=== PATIENT | male | born 1990 | race Two or more races ===

== ENCOUNTER 2020-03-22 20:24 | Inpatient (IN) | payer BC, OTHER ==
[~2020-03-22] VITALS: Ht 170.2 cm; Wt 114.0 kg
[2020-03-22] MEDS ORDERED: ONDANSETRON HCL 4 MG/2 ML VIAL IV ONE (20:45)
[2020-03-22] MEDS ORDERED: SODIUM CHLORIDE 0.9% 1,000 ML IVB ONE (20:45)
[2020-03-22] MEDS ORDERED: MORPHINE SULFATE 4 MG/ML SYR/VIAL IV ONE (20:45)
[2020-03-22 21:13] LABS: Basophils # (auto) 0 10 ^3/uL (0-0.2); Basophils % (auto) 0.1 % (0.0-2.0); Eosinophils # (auto) 0 10 ^3/uL (0-0.8); Eosinophils % (auto) 0.1 % (0.0-7.0); Hematocrit 42.8 % (41.0-53.0); Hemoglobin 14.7 g/dL (13.5-17.5); Lymphocytes # (auto) 1.6 10 ^3/uL (0.4-5.4); Lymphocytes % (auto) 9.3 % (10.0-50.0); Mean Corpuscular Hemoglobin 29.5 pg (28.0-32.0); Mean Corpuscular Hgb Conc. 34.2 g/dL (32.0-36.0); Mean Corpuscular Volume 86.1 fL (80.0-100.0); Monocytes # (auto) 1.3 10 ^3/uL (0-1.3); Monocytes % (auto) 7.6 % (0.0-12.0); Neutrophils % (auto) 82.9 % (37.0-80.0); Platelet Count (auto) 369 10^3/uL (140-450); Red Blood Cells 4.97 10^6/uL (4.5-5.90); Red Cell Distribution Width 13.3 % (11.8-14.3); White Blood Cell 16.9 10^3/uL (4.4-10.8)
[2020-03-22] MEDS ORDERED: IOHEXOL 300 MG/ML 100ML BOTTLE IJ ONE (21:21)
[2020-03-22 21:34] LABS: Alanine Aminotransferase 19 U/L (16-61); Albumin 2.9 g/dL (3.4-5.0); Anion Gap 6 (5-15); Aspartate Aminotransferase 9 U/L (15-37); Blood Urea Nitrogen 13 mg/dL (7-18); Carbon Dioxide 23 mmol/L (21-32); Chloride 106 mmol/L (98-107); GFR African American 123 mL/min; GFR Non-African American 101 mL/min; Glucose 115 mg/dL (74-106); Lipase 76 U/L (73-393); Potassium 4.3 mmol/L (3.5-5.1); Sodium 135 mmol/L (136-145)
[2020-03-22 21:37] LABS: Alkaline Phosphatase 79 U/L (45-117); Bilirubin, Total 0.6 mg/dL (0.2-1.0); Total Protein 7.2 g/dL (6.4-8.2)
[2020-03-22 21:40] LABS: Urine Bacteria NONE SEEN /hpf (None Seen); Urine Blood 1+ /uL (Negative); Urine Mucus FEW (None Seen); Urine Specific Gravity 1.028 (1.001-1.035); Urine WBC 1 /hpf (0 - 3)
[2020-03-22] MEDS ORDERED: MORPHINE SULFATE 10 MG/ML INJ 1ML SDV IV ONE (22:00)
[2020-03-22] MEDS ORDERED: PIPERACILLIN-TAZOB 3.375GM 100 ML IV ONE (22:00)
[2020-03-22 22:29] LABS: INR 1.18 (0.9-1.15); Partial Thromboplastin Time 26.7 sec (23.0-31.2)
[2020-03-22] MEDS ORDERED: metroNIDAZOLE 500MG/100ML 100 ML IV ONE (22:45)
[2020-03-22] MEDS ORDERED: NITROGLYCERIN 0.4 MG SL TAB SL PRN (22:45)
[2020-03-22] MEDS ORDERED: MORPHINE SULF INJ 2 MG/ML SYRINGE 1ML IV PRN (22:45)
[2020-03-22] MEDS ORDERED: FAMOTIDINE (10MG/ML) 2ML VL IV ONE (22:45)
[2020-03-22] MEDS ORDERED: SODIUM CHLORIDE 0.9% 500 ML IV ONE (22:45)
[2020-03-23] MEDS: SODIUM CHLORIDE 0.9% 1,000 ML IV SCH ×3 (00:32→18:34)
[2020-03-23] MEDS ORDERED: BENZOCAINE (DENTAL) 20 % SPRAY 60ML MT ONE (00:45)
[2020-03-23] MEDS: MORPHINE SULFATE 4 MG/ML SYR/VIAL IV PRN ×2 (01:20→08:32)
[2020-03-23] MEDS ORDERED: VANCOMYCIN PER PHARMACY 0 MG IV SCH (03:00)
[2020-03-23] MEDS ORDERED: VANCOMYCIN 1GM/250ML 250 ML IV ONE (03:15)
[2020-03-23] MEDS: metroNIDAZOLE 500MG/100ML 100 ML IV SCH ×3 (06:33→22:07)
[2020-03-23] MEDS: PIPERACILLIN-TAZOB 3.375GM 100 ML IV SCH ×2 (06:34→18:00)
[2020-03-23 06:35] LABS: Basophils # (auto) 0 10 ^3/uL (0-0.2); Basophils % (auto) 0.1 % (0.0-2.0); Eosinophils # (auto) 0.1 10 ^3/uL (0-0.8); Eosinophils % (auto) 0.8 % (0.0-7.0); Hematocrit 36.5 % (41.0-53.0); Hemoglobin 12.2 g/dL (13.5-17.5); Lymphocytes # (auto) 1.9 10 ^3/uL (0.4-5.4); Lymphocytes % (auto) 15.1 % (10.0-50.0); Mean Corpuscular Hgb Conc. 33.4 g/dL (32.0-36.0); Mean Corpuscular Volume 86.8 fL (80.0-100.0); Monocytes # (auto) 1.3 10 ^3/uL (0-1.3); Monocytes % (auto) 10.3 % (0.0-12.0); Neutrophils # (auto) 9.3 10 ^3/uL (1.6-8.6); Neutrophils % (auto) 73.7 % (37.0-80.0); Platelet Count (auto) 327 10^3/uL (140-450); Red Cell Distribution Width 13.2 % (11.8-14.3); White Blood Cell 12.6 10^3/uL (4.4-10.8)
[2020-03-23 06:53] LABS: Potassium 4.2 mmol/L (3.5-5.1)
[2020-03-23 07:00] LABS: Albumin 2.4 g/dL (3.4-5.0); BUN/Creatinine Ratio 11.5; Bilirubin, Total 0.6 mg/dL (0.2-1.0); Calcium 9.1 mg/dL (8.5-10.1); Total Protein 6.2 g/dL (6.4-8.2)
[2020-03-23] MEDS: ONDANSETRON HCL 4 MG/2 ML VIAL IV PRN ×2 (08:33→15:05)
[2020-03-23] MEDS ORDERED: FAMOTIDINE (10MG/ML) 2ML VL IV SCH (10:00)
[2020-03-23] MEDS: HYDROmorphone HCL 2 MG/ML VL IV PRN ×7 (10:37→23:20)
[2020-03-23] MEDS: VANCOMYCIN 1GM/250ML 250 ML IV SCH ×3 (12:00→20:29)
[2020-03-23] MEDS ORDERED: POVIDONE IODINE 10 % TOPICAL OINT 30GM TOP ONE (12:00)
[2020-03-23] MEDS ORDERED: LIDOCAINE 1% (LOCAL ANESTH.) PF 5ml SDV ONE (12:37)
[2020-03-23] MEDS ORDERED: SUCCINYLCHOLINE CHLORIDE 20 MG/ML 10ML VIAL IV ONE (12:37)
[2020-03-23] MEDS ORDERED: MIDAZOLAM HCL 1MG/1ML-2 ML VIAL ONE (12:41)
[2020-03-23] MEDS ORDERED: PROPOFOL 10 MG/ML 20 ML IV ONE (12:42)
[2020-03-23] MEDS ORDERED: ROCURONIUM 10MG/ML 10ML VIAL IV ONE (12:45)
[2020-03-23] MEDS ORDERED: fentaNYL CITRATE 100 MCG/2 ML VL ONE (13:04)
[2020-03-23] MEDS ORDERED: ePHEDrine SULFATE 50 MG/ML AMP ONE ×2 (13:25→13:27)
[2020-03-23] MEDS ORDERED: SODIUM CHLORIDE LOCK 20 ML ONE (13:27)
[2020-03-23] MEDS ORDERED: PHENYLEPHRINE HCL 10 MG/ML VL ONE (13:27)
[2020-03-23] MEDS ORDERED: GLYCOPYRROLATE 0.2 MG/ML 1ML VIAL ONE (14:39)
[2020-03-23] MEDS ORDERED: NEOSTIGMINE 1 MG/ML INJ (10mg/10ML VIAL) ONE (14:39)
[2020-03-23] MEDS ORDERED: HYDROmorphone HCL 2 MG/ML VL IV PRN (14:45)
[2020-03-23] MEDS ORDERED: NALOXONE HCL 0.4 MG/ML VIAL IV PRN (14:45)
[2020-03-23] MEDS ORDERED: ONDANSETRON HCL 4 MG/2 ML VIAL IV PRN (14:45)
[2020-03-23 18:23] VITALS: BP 122/62
[2020-03-23 22:00] VITALS: BP 132/74
[2020-03-24] MEDS: PIPERACILLIN-TAZOB 3.375GM 100 ML IV SCH ×4 (00:07→18:29)
[2020-03-24] MEDS: HYDROmorphone HCL 2 MG/ML VL IV PRN ×4 (03:51→21:21)
[2020-03-24] MEDS: VANCOMYCIN 1GM/250ML 250 ML IV SCH ×3 (04:13→21:26)
[2020-03-24] MEDS: SODIUM CHLORIDE 0.9% 1,000 ML IV SCH ×3 (04:24→18:33)
[2020-03-24 05:00] VITALS: BP 131/72
[2020-03-24] MEDS: metroNIDAZOLE 500MG/100ML 100 ML IV SCH ×3 (06:14→22:00)
[2020-03-24 08:00] VITALS: BP 113/80
[2020-03-24 08:10] VITALS: BP 133/80
[2020-03-24 09:00] VITALS: BP 113/80
[2020-03-24] MEDS: PANTOPRAZOLE 40 MG/10 ML VIAL INJ IV SCH (09:16)
[2020-03-24] MEDS ORDERED: TPN PER PHARMACY 0 ML IV SCH (13:00)
[2020-03-24 13:35] LABS: Albumin 2.2 g/dL (3.4-5.0); Calcium 9.2 mg/dL (8.5-10.1); Magnesium 2.2 mg/dL (1.6-2.6); Potassium 4.5 mmol/L (3.5-5.1)
[2020-03-24 13:43] LABS: BUN/Creatinine Ratio 11.9; Bilirubin, Total 0.6 mg/dL (0.2-1.0); Pre Albumin 8.8 mg/dL (20.0-40.0)
[2020-03-24 16:00] VITALS: BP 126/71
[2020-03-24] MEDS ORDERED: KETOROLAC TROMETH 30 MG/ML 1ML VIAL IV PRN (16:15)
[2020-03-24] MEDS ORDERED: DEXTROSE (50%) 50ML SYRG IV SCH (18:00)
[2020-03-24] MEDS: ACCU-CHEK COMFORT CURVE STRIP VI SCH (18:00)
[2020-03-24] MEDS: InsuLIN REG 1unit/0.01ml Soln (100units/ml) SC SCH (18:30)
[2020-03-24] MEDS ORDERED: AMINO ACID INFUSION IN D10W 1,000 ML IV NR (20:00)
[2020-03-24 22:00] VITALS: BP 136/77
[2020-03-25] MEDS: PIPERACILLIN-TAZOB 3.375GM 100 ML IV SCH ×4 (01:07→17:59)
[2020-03-25] MEDS: InsuLIN REG 1unit/0.01ml Soln (100units/ml) SC SCH ×4 (01:09→18:00)
[2020-03-25] MEDS: ACCU-CHEK COMFORT CURVE STRIP VI SCH ×4 (01:09→18:00)
[2020-03-25 05:00] VITALS: BP 115/73
[2020-03-25] MEDS: metroNIDAZOLE 500MG/100ML 100 ML IV SCH ×3 (05:41→22:15)
[2020-03-25] MEDS: VANCOMYCIN 1GM/250ML 250 ML IV SCH (05:41)
[2020-03-25 07:44] LABS: Calcium 9.4 mg/dL (8.5-10.1); Magnesium 2.6 mg/dL (1.6-2.6)
[2020-03-25 07:48] LABS: BUN/Creatinine Ratio 16.7; Bilirubin, Total 0.4 mg/dL (0.2-1.0); Phosphorus 2.4 mg/dL (2.5-4.90); Total Protein 5.9 g/dL (6.4-8.2)
[2020-03-25 08:00] VITALS: BP 118/64
[2020-03-25] MEDS: PANTOPRAZOLE 40 MG/10 ML VIAL INJ IV SCH (09:47)
[2020-03-25] MEDS ORDERED: POTASSIUM PHOSPHATE 22 MEQ in SODIUM CHL 0.9% 100 ML IV ONE (10:00)
[2020-03-25] MEDS: SODIUM CHLORIDE 0.9% 1,000 ML IV SCH ×2 (10:45→20:45)
[2020-03-25 13:26] LABS: INR 1.27 (0.9-1.15); Partial Thromboplastin Time 25.1 sec (23.0-31.2)
[2020-03-25 16:00] VITALS: BP 125/70
[2020-03-25] MEDS: HYDROmorphone HCL 2 MG/ML VL IV PRN ×3 (16:49→22:37)
[2020-03-25] MEDS ORDERED: TPN PER PHARMACY IV NR ×6 (20:00)
[2020-03-25] MEDS ORDERED: PPN PER PHARMACY IV NR ×6 (20:00)
[2020-03-25 22:00] VITALS: BP 128/77
[2020-03-26] MEDS: PIPERACILLIN-TAZOB 3.375GM 100 ML IV SCH ×5 (00:25→23:51)
[2020-03-26] MEDS: HYDROmorphone HCL 2 MG/ML VL IV PRN ×4 (04:41→20:05)
[2020-03-26] MEDS: metroNIDAZOLE 500MG/100ML 100 ML IV SCH ×3 (05:45→22:04)
[2020-03-26] MEDS: SODIUM CHLORIDE 0.9% 1,000 ML IV SCH ×2 (06:00→15:19)
[2020-03-26] MEDS: ACCU-CHEK COMFORT CURVE STRIP VI SCH ×5 (06:00→23:50)
[2020-03-26] MEDS: InsuLIN REG 1unit/0.01ml Soln (100units/ml) SC SCH ×5 (06:00→23:50)
[2020-03-26 08:00] VITALS: BP 140/90
[2020-03-26 08:23] LABS: Basophils # (auto) 0 10 ^3/uL (0-0.2); Basophils % (auto) 0.1 % (0.0-2.0); Eosinophils # (auto) 0.2 10 ^3/uL (0-0.8); Eosinophils % (auto) 2.3 % (0.0-7.0); Hematocrit 35.5 % (41.0-53.0); Hemoglobin 11.8 g/dL (13.5-17.5); Lymphocytes # (auto) 1.8 10 ^3/uL (0.4-5.4); Lymphocytes % (auto) 17.4 % (10.0-50.0); Mean Corpuscular Hemoglobin 28.9 pg (28.0-32.0); Mean Corpuscular Hgb Conc. 33.1 g/dL (32.0-36.0); Mean Corpuscular Volume 87.3 fL (80.0-100.0); Monocytes # (auto) 1.1 10 ^3/uL (0-1.3); Neutrophils # (auto) 7.5 10 ^3/uL (1.6-8.6); Neutrophils % (auto) 70.2 % (37.0-80.0); Platelet Count (auto) 389 10^3/uL (140-450); Red Blood Cells 4.07 10^6/uL (4.5-5.90); Red Cell Distribution Width 13.1 % (11.8-14.3); White Blood Cell 10.6 10^3/uL (4.4-10.8)
[2020-03-26 08:38] LABS: Potassium 3.9 mmol/L (3.5-5.1)
[2020-03-26 08:51] LABS: BUN/Creatinine Ratio 16.3; Bilirubin, Total 0.3 mg/dL (0.2-1.0); Calcium 9.3 mg/dL (8.5-10.1); Magnesium 2.4 mg/dL (1.6-2.6); Phosphorus 2.9 mg/dL (2.5-4.90); Total Protein 6.1 g/dL (6.4-8.2)
[2020-03-26] MEDS: PANTOPRAZOLE 40 MG/10 ML VIAL INJ IV SCH (12:49)
[2020-03-26 16:00] VITALS: BP 145/93
[2020-03-26] MEDS ORDERED: PPN PER PHARMACY IV NR ×8 (20:00)
[2020-03-26 22:00] VITALS: BP 102/64
[2020-03-27] MEDS: HYDROmorphone HCL 2 MG/ML VL IV PRN ×6 (00:07→21:53)
[2020-03-27] MEDS: SODIUM CHLORIDE 0.9% 1,000 ML IV SCH ×3 (02:23→20:57)
[2020-03-27 05:00] VITALS: BP 155/89
[2020-03-27] MEDS: metroNIDAZOLE 500MG/100ML 100 ML IV SCH ×3 (05:09→20:57)
[2020-03-27] MEDS: InsuLIN REG 1unit/0.01ml Soln (100units/ml) SC SCH ×4 (05:37→23:41)
[2020-03-27] MEDS: ACCU-CHEK COMFORT CURVE STRIP VI SCH ×4 (05:37→23:41)
[2020-03-27] MEDS: PIPERACILLIN-TAZOB 3.375GM 100 ML IV SCH (06:12)
[2020-03-27 07:22] LABS: Albumin 2.1 g/dL (3.4-5.0); Calcium 8.8 mg/dL (8.5-10.1); Magnesium 2.3 mg/dL (1.6-2.6); Potassium 3.5 mmol/L (3.5-5.1)
[2020-03-27 07:25] LABS: BUN/Creatinine Ratio 16.7; Bilirubin, Total 0.3 mg/dL (0.2-1.0); Phosphorus 2.7 mg/dL (2.5-4.90)
[2020-03-27 08:00] VITALS: BP 141/90
[2020-03-27] MEDS: PANTOPRAZOLE 40 MG/10 ML VIAL INJ IV SCH (09:15)
[2020-03-27] MEDS ORDERED: cefTRIAXone 1GM/50ML D5W 50 ML IV ONE (10:15)
[2020-03-27 16:00] VITALS: BP 130/70
[2020-03-27] MEDS ORDERED: PPN PER PHARMACY IV NR ×7 (20:00)
[2020-03-27 22:00] VITALS: BP 137/73
[2020-03-28] MEDS: HYDROmorphone HCL 2 MG/ML VL IV PRN ×3 (02:15→19:09)
[2020-03-28 05:00] VITALS: BP 132/81
[2020-03-28] MEDS: InsuLIN REG 1unit/0.01ml Soln (100units/ml) SC SCH (05:33)
[2020-03-28] MEDS: ACCU-CHEK COMFORT CURVE STRIP VI SCH (05:33)
[2020-03-28] MEDS: metroNIDAZOLE 500MG/100ML 100 ML IV SCH ×3 (05:33→21:02)
[2020-03-28 06:31] LABS: Basophils # (auto) 0 10 ^3/uL (0-0.2); Basophils % (auto) 0.3 % (0.0-2.0); Eosinophils # (auto) 0.3 10 ^3/uL (0-0.8); Eosinophils % (auto) 2.6 % (0.0-7.0); Hematocrit 35.7 % (41.0-53.0); Hemoglobin 12.3 g/dL (13.5-17.5); Lymphocytes # (auto) 1.7 10 ^3/uL (0.4-5.4); Lymphocytes % (auto) 16.3 % (10.0-50.0); Mean Corpuscular Hemoglobin 29.5 pg (28.0-32.0); Mean Corpuscular Hgb Conc. 34.4 g/dL (32.0-36.0); Mean Corpuscular Volume 85.8 fL (80.0-100.0); Monocytes # (auto) 0.7 10 ^3/uL (0-1.3); Neutrophils # (auto) 7.8 10 ^3/uL (1.6-8.6); Neutrophils % (auto) 73.8 % (37.0-80.0); Nucleated Red Blood Cells % 0.1 %; Platelet Count (auto) 404 10^3/uL (140-450); Red Blood Cells 4.15 10^6/uL (4.5-5.90); Red Cell Distribution Width 12.9 % (11.8-14.3); White Blood Cell 10.6 10^3/uL (4.4-10.8)
[2020-03-28 07:04] LABS: Potassium 4.2 mmol/L (3.5-5.1)
[2020-03-28 07:13] LABS: Albumin 2.2 g/dL (3.4-5.0); BUN/Creatinine Ratio 16.2; Bilirubin, Total 0.3 mg/dL (0.2-1.0); Calcium 9.2 mg/dL (8.5-10.1); Magnesium 2.4 mg/dL (1.6-2.6); Phosphorus 2.4 mg/dL (2.5-4.90); Total Protein 6.2 g/dL (6.4-8.2)
[2020-03-28 08:00] VITALS: BP 128/85
[2020-03-28] MEDS: PANTOPRAZOLE 40 MG/10 ML VIAL INJ IV SCH (10:28)
[2020-03-28] MEDS: cefTRIAXone 1GM/50ML D5W 50 ML IV SCH (10:28)
[2020-03-28] MEDS: SODIUM CHLORIDE 0.9% 1,000 ML IV SCH ×2 (10:28→18:47)
[2020-03-28 16:00] VITALS: BP 119/70
[2020-03-28] MEDS ORDERED: PPN PER PHARMACY IV NR ×9 (20:00)
[2020-03-28] MEDS ORDERED: TPN PER PHARMACY IV NR ×9 (20:00)
[2020-03-29] MEDS: HYDROmorphone HCL 2 MG/ML VL IV PRN (01:44)
[2020-03-29] MEDS: metroNIDAZOLE 500MG/100ML 100 ML IV SCH ×3 (05:21→21:30)
[2020-03-29] MEDS: SODIUM CHLORIDE 0.9% 1,000 ML IV SCH ×2 (05:58→16:23)
[2020-03-29 06:25] LABS: Potassium 4.3 mmol/L (3.5-5.1)
[2020-03-29 06:37] LABS: Albumin 2.3 g/dL (3.4-5.0); BUN/Creatinine Ratio 17.6; Bilirubin, Total 0.3 mg/dL (0.2-1.0); Calcium 9.5 mg/dL (8.5-10.1); Magnesium 2.6 mg/dL (1.6-2.6); Phosphorus 2.6 mg/dL (2.5-4.90); Total Protein 6.2 g/dL (6.4-8.2)
[2020-03-29 08:00] VITALS: BP 113/73
[2020-03-29] MEDS: cefTRIAXone 1GM/50ML D5W 50 ML IV SCH (09:09)
[2020-03-29] MEDS: PANTOPRAZOLE 40 MG/10 ML VIAL INJ IV SCH (09:09)
[2020-03-29 16:00] VITALS: BP 137/75
[2020-03-29 22:00] VITALS: BP 125/75
[2020-03-30] MEDS: SODIUM CHLORIDE 0.9% 1,000 ML IV SCH ×2 (00:45→10:17)
[2020-03-30 05:00] VITALS: BP 122/78
[2020-03-30] MEDS: metroNIDAZOLE 500MG/100ML 100 ML IV SCH (06:20)
[2020-03-30 08:00] VITALS: BP 144/91
[2020-03-30] MEDS: cefTRIAXone 1GM/50ML D5W 50 ML IV SCH (09:00)
[2020-03-30] MEDS: PANTOPRAZOLE 40 MG/10 ML VIAL INJ IV SCH (10:00)
== END 2020-03-30 13:10 | disposition home or self-care (01) | DRG 853 ==
LOC: ER 20:27 → EDBD 20:27 → TELE 20:28 → TELE-CENTR 03-23 18:30
PROVIDERS: ADMIT Nurse Practitioner; ATTEND Family Medicine
PROC: 0D1N0Z4 Bypass Sigmoid Colon to Cutaneous, Open Approach (ICD-10-PCS; 2020-03-23)
PROC: 0DBN0ZZ Excision of Sigmoid Colon, Open Approach (ICD-10-PCS; principal; 2020-03-23 12:46)
DX: A41.9 Sepsis, unspecified organism (principal); K65.1 Peritoneal abscess; K57.20 Diverticulitis of large intestine with perforation and abscess without bleeding; N39.0 Urinary tract infection, site not specified; E86.0 Dehydration; K42.9 Umbilical hernia without obstruction or gangrene; K76.0 Fatty (change of) liver, not elsewhere classified; Z20.822 Contact with and (suspected) exposure to COVID-19; Z83.3 Family history of diabetes mellitus
CPT/HCPCS: 36415; 71045; 74177; 80053; 80202; 81001; 82040; 82962; 83605; 83690; 83735; 84100; 84478; 85025; 85610; 85730; 86850; 86900; 86901; 87040; 87070; 87075; 87077; 87186; 87205; 93005; C9113; G0378; J0330; J0696; J1815; J1885; J2250; J2405; J2543; J2704; J3490

== ENCOUNTER 2020-04-08 22:13 | Inpatient (IN) | payer BC ==
[~2020-04-08] VITALS: Ht 172.7 cm; Wt 113.0 kg
[2020-04-08 23:36] LABS: Basophils # (auto) 0 10 ^3/uL (0-0.2); Basophils % (auto) 0.2 % (0.0-2.0); Eosinophils # (auto) 0.1 10 ^3/uL (0-0.8); Eosinophils % (auto) 1.1 % (0.0-7.0); Hematocrit 41.5 % (41.0-53.0); Hemoglobin 13.9 g/dL (13.5-17.5); Lymphocytes # (auto) 2.4 10 ^3/uL (0.4-5.4); Lymphocytes % (auto) 34.4 % (10.0-50.0); Mean Corpuscular Hemoglobin 29.1 pg (28.0-32.0); Mean Corpuscular Hgb Conc. 33.5 g/dL (32.0-36.0); Mean Corpuscular Volume 87.1 fL (80.0-100.0); Monocytes # (auto) 0.7 10 ^3/uL (0-1.3); Monocytes % (auto) 9.5 % (0.0-12.0); Neutrophils # (auto) 3.9 10 ^3/uL (1.6-8.6); Neutrophils % (auto) 54.8 % (37.0-80.0); Platelet Count (auto) 371 10^3/uL (140-450); Red Blood Cells 4.76 10^6/uL (4.5-5.90); Red Cell Distribution Width 13.7 % (11.8-14.3)
[2020-04-08 23:54] LABS: Calcium 9.5 mg/dL (8.5-10.1); Potassium 4.2 mmol/L (3.5-5.1)
[2020-04-08 23:58] LABS: BUN/Creatinine Ratio 10.1; Bilirubin, Total 0.2 mg/dL (0.2-1.0); Total Protein 7.1 g/dL (6.4-8.2)
[2020-04-09] MEDS ORDERED: CIPROFLOXACIN 400MG/200ML 200 ML IV ONE (01:15)
[2020-04-09] MEDS ORDERED: SODIUM CHLORIDE 0.9% 1,000 ML IV ONE (01:15)
[2020-04-09] MEDS ORDERED: metroNIDAZOLE 500MG/100ML 100 ML IV ONE (01:15)
[2020-04-09 02:03] LABS: INR 1.12 (0.9-1.15)
[2020-04-09] MEDS ORDERED: SODIUM CHLORIDE 0.9% 1,000 ML IV SCH (04:00)
[2020-04-09] MEDS ORDERED: NITROGLYCERIN 0.4 MG SL TAB SL PRN (04:00)
[2020-04-09] MEDS ORDERED: HYDROcodone-ACET 5/325MG TAB PO PRN (04:00)
[2020-04-09] MEDS ORDERED: MORPHINE SULF INJ 2 MG/ML SYRINGE 1ML IV PRN (04:00)
[2020-04-09] MEDS ORDERED: ONDANSETRON HCL 4 MG/2 ML VIAL IV PRN (04:00)
[2020-04-09] MEDS ORDERED: hydrALAZINE HCL 20 MG/ML VL IV PRN (04:00)
[2020-04-09] MEDS ORDERED: DOCUSATE SOD 100 MG CAP PO PRN (04:00)
[2020-04-09] MEDS ORDERED: ACETAMINOPHEN 325 MG TAB PO PRN (04:00)
[2020-04-09] MEDS ORDERED: MORPHINE SULFATE 4 MG/ML SYR/VIAL IV PRN (04:00)
[2020-04-09 04:30] LABS: Basophils # (auto) 0 10 ^3/uL (0-0.2); Basophils % (auto) 0.2 % (0.0-2.0); Eosinophils # (auto) 0.1 10 ^3/uL (0-0.8); Eosinophils % (auto) 1.1 % (0.0-7.0); Hematocrit 39.2 % (41.0-53.0); Hemoglobin 12.9 g/dL (13.5-17.5); Lymphocytes # (auto) 1.8 10 ^3/uL (0.4-5.4); Mean Corpuscular Hemoglobin 29.1 pg (28.0-32.0); Mean Corpuscular Hgb Conc. 32.9 g/dL (32.0-36.0); Mean Corpuscular Volume 88.2 fL (80.0-100.0); Monocytes # (auto) 0.7 10 ^3/uL (0-1.3); Monocytes % (auto) 10.1 % (0.0-12.0); Neutrophils # (auto) 4.4 10 ^3/uL (1.6-8.6); Neutrophils % (auto) 62.6 % (37.0-80.0); Platelet Count (auto) 333 10^3/uL (140-450); Red Blood Cells 4.45 10^6/uL (4.5-5.90); Red Cell Distribution Width 13.9 % (11.8-14.3)
[2020-04-09 04:51] LABS: Albumin 2.8 g/dL (3.4-5.0); Calcium 9.2 mg/dL (8.5-10.1); Potassium 4.2 mmol/L (3.5-5.1)
[2020-04-09 04:55] LABS: BUN/Creatinine Ratio 11.5; Bilirubin, Total 0.2 mg/dL (0.2-1.0); Total Protein 6.2 g/dL (6.4-8.2)
[2020-04-09 05:04] LABS: INR 1.17 (0.9-1.15); Partial Thromboplastin Time 27.3 sec (23.0-31.2)
[2020-04-09] MEDS: metroNIDAZOLE 500MG/100ML 100 ML IV SCH ×3 (06:00→22:00)
[2020-04-09] MEDS: cefTRIAXone 1GM/50ML D5W 50 ML IV SCH (09:44)
[2020-04-09] MEDS: ZINC SULFATE 220mg CAP or TAB PO SCH (09:44)
[2020-04-09] MEDS: FAMOTIDINE (10MG/ML) 2ML VL IV SCH ×2 (09:44→22:00)
[2020-04-09] MEDS: MULTIPLE VITAMIN TAB PO SCH (09:45)
[2020-04-09] MEDS: ENOXAPARIN SOD 40 MG/0.4 ML SYRINGE SC SCH (09:45)
[2020-04-09] MEDS: ASCORBIC ACID 500 MG TAB PO SCH ×2 (09:45→22:00)
[2020-04-09] MEDS: D5W/SOD CHL 0.45%/KCL 20MEQ 1,000 ML IV SCH ×2 (15:46→23:30)
[2020-04-09 16:00] VITALS: BP 137/85
[2020-04-09 16:10] LABS: Urine Bacteria NONE SEEN /hpf (None Seen); Urine Blood Negative /uL (Negative); Urine Specific Gravity 1.014 (1.001-1.035); Urine WBC 1 /hpf (0 - 3)
[2020-04-09 22:00] VITALS: BP 130/75
[2020-04-10 05:00] VITALS: BP 127/75
[2020-04-10] MEDS: metroNIDAZOLE 500MG/100ML 100 ML IV SCH ×2 (06:12→14:00)
[2020-04-10 06:58] LABS: Basophils # (auto) 0 10 ^3/uL (0-0.2); Basophils % (auto) 0.2 % (0.0-2.0); Eosinophils # (auto) 0.1 10 ^3/uL (0-0.8); Eosinophils % (auto) 1.6 % (0.0-7.0); Hematocrit 42.7 % (41.0-53.0); Hemoglobin 14.5 g/dL (13.5-17.5); Lymphocytes # (auto) 2.7 10 ^3/uL (0.4-5.4); Lymphocytes % (auto) 38.9 % (10.0-50.0); Mean Corpuscular Hemoglobin 29.5 pg (28.0-32.0); Mean Corpuscular Hgb Conc. 33.9 g/dL (32.0-36.0); Mean Corpuscular Volume 87.1 fL (80.0-100.0); Monocytes # (auto) 0.7 10 ^3/uL (0-1.3); Neutrophils # (auto) 3.4 10 ^3/uL (1.6-8.6); Neutrophils % (auto) 49.3 % (37.0-80.0); Platelet Count (auto) 367 10^3/uL (140-450); Red Cell Distribution Width 13.7 % (11.8-14.3); White Blood Cell 6.9 10^3/uL (4.4-10.8)
[2020-04-10 07:20] LABS: Calcium 10.6 mg/dL (8.5-10.1); Potassium 4.2 mmol/L (3.5-5.1)
[2020-04-10 07:23] LABS: Albumin 3.4 g/dL (3.4-5.0); BUN/Creatinine Ratio 9.2
[2020-04-10 07:26] LABS: Bilirubin, Total 0.4 mg/dL (0.2-1.0); Total Protein 7.4 g/dL (6.4-8.2)
[2020-04-10 08:00] VITALS: BP 124/66
[2020-04-10] MEDS: D5W/SOD CHL 0.45%/KCL 20MEQ 1,000 ML IV SCH (09:30)
[2020-04-10] MEDS: ENOXAPARIN SOD 40 MG/0.4 ML SYRINGE SC SCH (10:00)
[2020-04-10] MEDS: cefTRIAXone 1GM/50ML D5W 50 ML IV SCH (10:04)
[2020-04-10] MEDS: ASCORBIC ACID 500 MG TAB PO SCH (10:04)
[2020-04-10] MEDS: FAMOTIDINE (10MG/ML) 2ML VL IV SCH (10:04)
[2020-04-10] MEDS: ZINC SULFATE 220mg CAP or TAB PO SCH (10:04)
[2020-04-10] MEDS: MULTIPLE VITAMIN TAB PO SCH (10:04)
[2020-04-10 11:34] VITALS: BP 127/75
== END 2020-04-10 13:56 | disposition home or self-care (01) | DRG 392 ==
LOC: ER 22:13 → TELE 22:14 → TELE-EAST 04-09 07:30 → TELE-CENTR 04-09 15:57
PROVIDERS: ADMIT Nurse Practitioner Family; ATTEND Nurse Practitioner Family
DX: K52.9 Noninfective gastroenteritis and colitis, unspecified (principal); D68.9 Coagulation defect, unspecified; E44.0 Moderate protein-calorie malnutrition; D63.8 Anemia in other chronic diseases classified elsewhere; Z20.822 Contact with and (suspected) exposure to COVID-19; G89.29 Other chronic pain; Z83.3 Family history of diabetes mellitus; Z93.3 Colostomy status; Z90.49 Acquired absence of other specified parts of digestive tract
CPT/HCPCS: 36415; 74176; 76705; 80053; 81001; 83036; 83690; 85025; 85610; 85730; 87040; 87081; 87426; 96361; 96365; 96368; G0378; J0696; J3490

== ENCOUNTER 2020-12-07 07:34 | Inpatient (IN) | payer MEDICAID ==
[2020-12-05 15:30] LABS: Basophils # (auto) 0 10 ^3/uL (0-0.2); Basophils % (auto) 0.2 % (0.0-2.0); Eosinophils # (auto) 0.1 10 ^3/uL (0-0.8); Hematocrit 44.5 % (41.0-53.0); Lymphocytes % (auto) 39.5 % (10.0-50.0); Mean Corpuscular Hemoglobin 29.1 pg (28.0-32.0); Mean Corpuscular Hgb Conc. 33.8 g/dL (32.0-36.0); Mean Corpuscular Volume 86.1 fL (80.0-100.0); Monocytes # (auto) 0.8 10 ^3/uL (0-1.3); Monocytes % (auto) 10.1 % (0.0-12.0); Neutrophils # (auto) 3.8 10 ^3/uL (1.6-8.6); Neutrophils % (auto) 49.2 % (37.0-80.0); Nucleated Red Blood Cells % 0.1 %; Red Blood Cells 5.16 10^6/uL (4.5-5.90); Red Cell Distribution Width 13.1 % (11.8-14.3); White Blood Cell 7.6 10^3/uL (4.4-10.8)
[2020-12-05 15:45] LABS: Urine Bacteria NONE SEEN /hpf (None Seen); Urine Blood Negative /uL (Negative); Urine Specific Gravity 1.029 (1.001-1.035); Urine WBC 4 /hpf (0 - 3)
[2020-12-05 16:09] LABS: Potassium 4.1 mmol/L (3.5-5.1)
[2020-12-05 16:17] LABS: Albumin 3.6 g/dL (3.4-5.0); BUN/Creatinine Ratio 17.9; Bilirubin, Total 0.4 mg/dL (0.2-1.0); Calcium 9.9 mg/dL (8.5-10.1); Total Protein 7.4 g/dL (6.4-8.2)
[~2020-12-07] VITALS: Ht 170.2 cm; Wt 120.0 kg
[2020-12-07] MEDS ORDERED: ceFAZolin 1GM/50ML 100 ML IV ONE (07:42)
[2020-12-07] MEDS ORDERED: MEPERIDINE HCL (25 MG/ML) 1ML VIAL ONE ×2 (09:05→14:15)
[2020-12-07] MEDS ORDERED: GLYCOPYRROLATE 0.2 MG/ML 1ML VIAL ONE (09:05)
[2020-12-07] MEDS ORDERED: SODIUM CHLORIDE LOCK 10 ML ONE (09:05)
[2020-12-07] MEDS ORDERED: MIDAZOLAM HCL 2MG/2ML 2ml VIAL (1mg/ml) ONE (09:05)
[2020-12-07] MEDS ORDERED: fentaNYL CITRATE 100 MCG/2 ML VL ONE ×3 (09:05→13:04)
[2020-12-07] MEDS ORDERED: ONDANSETRON HCL 4 MG/2 ML VIAL ONE (09:05)
[2020-12-07] MEDS ORDERED: PROPOFOL 10 MG/ML 20 ML IV ONE (09:05)
[2020-12-07] MEDS ORDERED: NEOSTIGMINE 1 MG/ML INJ (10mg/10ML VIAL) ONE (09:05)
[2020-12-07] MEDS ORDERED: ROCURONIUM 10MG/ML 10ML VIAL IV ONE ×2 (09:05→13:24)
[2020-12-07] MEDS ORDERED: BUPIVACAINE W/ EPINEPH 0.25% INJ 50ML MDV ONE (10:31)
[2020-12-07] MEDS ORDERED: HYDROmorphone HCL 2 MG/ML VL IV PRN (10:45)
[2020-12-07] MEDS ORDERED: MORPHINE SULFATE 4 MG/ML SYR/VIAL IV PRN (10:45)
[2020-12-07] MEDS ORDERED: METOCLOPRAMIDE HCL 5MG/ml INJ 2ml VIAL IV PRN (10:45)
[2020-12-07] MEDS ORDERED: DexAMETHasone SOD PHOS 10MG/1ML VIAL INJ ONE (11:29)
[2020-12-07] MEDS ORDERED: ONDANSETRON HCL 4 MG/2 ML VIAL IV PRN (14:15)
[2020-12-07] MEDS: HYDROmorphone HCL 2 MG/ML VL ONE ×2 (14:45→15:00)
[2020-12-07] MEDS ORDERED: MORPHINE SULFATE INJECTION 2 MG/ML SYRG IV PRN (15:30)
[2020-12-07 16:49] VITALS: BP 133/78
[2020-12-07] MEDS: D5W/SOD CHL 0.45%/KCL 40MEQ 1,000 ML IV SCH ×2 (17:43→22:35)
[2020-12-07] MEDS: HYDROmorphone HCL 2 MG/ML VL IV PRN ×2 (18:56→22:15)
[2020-12-07 22:00] VITALS: BP 127/74
[2020-12-07] MEDS: metroNIDAZOLE 500MG/100ML 100 ML IV SCH (22:15)
[2020-12-08] MEDS: ceFAZolin 2 GM in D5W 5% 100 ML IV SCH ×4 (01:10→22:36)
[2020-12-08] MEDS: HYDROmorphone HCL 2 MG/ML VL IV PRN ×7 (02:16→22:03)
[2020-12-08 05:00] VITALS: BP 128/88
[2020-12-08] MEDS: metroNIDAZOLE 500MG/100ML 100 ML IV SCH ×3 (05:25→21:49)
[2020-12-08 05:45] LABS: Basophils # (auto) 0 10 ^3/uL (0-0.2); Basophils % (auto) 0.1 % (0.0-2.0); Eosinophils # (auto) 0 10 ^3/uL (0-0.8); Lymphocytes # (auto) 0.9 10 ^3/uL (0.4-5.4); Lymphocytes % (auto) 8.3 % (10.0-50.0); Mean Corpuscular Hemoglobin 28.7 pg (28.0-32.0); Mean Corpuscular Hgb Conc. 33.3 g/dL (32.0-36.0); Mean Corpuscular Volume 86.3 fL (80.0-100.0); Monocytes # (auto) 0.9 10 ^3/uL (0-1.3); Monocytes % (auto) 7.8 % (0.0-12.0); Neutrophils # (auto) 9.6 10 ^3/uL (1.6-8.6); Neutrophils % (auto) 83.8 % (37.0-80.0); Red Blood Cells 4.86 10^6/uL (4.5-5.90); Red Cell Distribution Width 13.3 % (11.8-14.3); White Blood Cell 11.5 10^3/uL (4.4-10.8)
[2020-12-08 06:53] LABS: Calcium 9.8 mg/dL (8.5-10.1); Potassium 4.6 mmol/L (3.5-5.1)
[2020-12-08] MEDS: D5W/SOD CHL 0.45%/KCL 40MEQ 1,000 ML IV SCH ×3 (06:55→23:35)
[2020-12-08 09:00] VITALS: BP 125/70
[2020-12-08] MEDS: PANTOPRAZOLE 40 MG/10 ML VIAL INJ IV SCH (10:13)
[2020-12-08 12:47] VITALS: BP 122/81
[2020-12-08 16:56] VITALS: BP 142/92
[2020-12-08] MEDS ORDERED: ENOXAPARIN SOD 40 MG/0.4 ML SYRINGE SC ONE (18:45)
[2020-12-08] MEDS: NITROGLYCERIN 0.4 MG SL TAB SL PRN ×2 (20:12→20:20)
[2020-12-08 20:13] VITALS: BP 146/88
[2020-12-08 22:00] VITALS: BP 128/78
[2020-12-09] MEDS: HYDROmorphone HCL 2 MG/ML VL IV PRN ×6 (01:22→21:54)
[2020-12-09] MEDS: D5W/SOD CHL 0.45%/KCL 40MEQ 1,000 ML IV SCH ×2 (04:21→19:52)
[2020-12-09 05:00] VITALS: BP 122/78
[2020-12-09] MEDS: ceFAZolin 2 GM in D5W 5% 100 ML IV SCH ×3 (05:12→22:43)
[2020-12-09] MEDS: metroNIDAZOLE 500MG/100ML 100 ML IV SCH ×3 (06:13→21:49)
[2020-12-09 09:00] VITALS: BP 139/94
[2020-12-09] MEDS: ENOXAPARIN SOD 40 MG/0.4 ML SYRINGE SC SCH (10:25)
[2020-12-09] MEDS: PANTOPRAZOLE 40 MG/10 ML VIAL INJ IV SCH (10:25)
[2020-12-09 13:00] VITALS: BP 128/79
[2020-12-09 16:45] LABS: INR 1.11 (0.9-1.15); Partial Thromboplastin Time 28.8 sec (23.6-33.0)
[2020-12-09 17:00] VITALS: BP 148/79
[2020-12-09 20:14] VITALS: BP 134/78
[2020-12-09 22:00] VITALS: BP 134/78
[2020-12-10] VITALS (7 sets, daily range): BP systolic 119–136; BP diastolic 69–85
[2020-12-10] MEDS: HYDROmorphone HCL 2 MG/ML VL IV PRN ×10 (00:26→22:52)
[2020-12-10] MEDS: D5W/SOD CHL 0.45%/KCL 40MEQ 1,000 ML IV SCH ×4 (00:26→20:57)
[2020-12-10] MEDS: ceFAZolin 2 GM in D5W 5% 100 ML IV SCH ×2 (05:10→14:52)
[2020-12-10] MEDS: metroNIDAZOLE 500MG/100ML 100 ML IV SCH ×3 (06:02→22:22)
[2020-12-10] MEDS ORDERED: LIDOCAINE 1% (LOCAL ANESTH.) PF 5ml SDV ID ONE (09:45)
[2020-12-10] MEDS: SODIUM CHLOR 0.9% PF (SALINE LOCK) 10ML VIAL/SYR IV SCH ×2 (10:20→22:00)
[2020-12-10] MEDS: PANTOPRAZOLE 40 MG/10 ML VIAL INJ IV SCH (10:20)
[2020-12-10] MEDS: ENOXAPARIN SOD 40 MG/0.4 ML SYRINGE SC SCH (10:52)
[2020-12-10] MEDS ORDERED: IOHEXOL 350 MG/ML 100ML IJ ONE (11:57)
[2020-12-11] MEDS: ceFAZolin 2 GM in D5W 5% 100 ML IV SCH ×4 (00:29→21:45)
[2020-12-11] MEDS: HYDROmorphone HCL 2 MG/ML VL IV PRN ×9 (01:34→22:10)
[2020-12-11 05:00] VITALS: BP 121/66
[2020-12-11 05:16] LABS: Basophils # (auto) 0 10 ^3/uL (0-0.2); Basophils % (auto) 0.2 % (0.0-2.0); Eosinophils # (auto) 0.1 10 ^3/uL (0-0.8); Eosinophils % (auto) 0.8 % (0.0-7.0); Hematocrit 41.3 % (41.0-53.0); Hemoglobin 13.9 g/dL (13.5-17.5); Lymphocytes # (auto) 1.9 10 ^3/uL (0.4-5.4); Lymphocytes % (auto) 20.8 % (10.0-50.0); Mean Corpuscular Hemoglobin 28.9 pg (28.0-32.0); Mean Corpuscular Hgb Conc. 33.6 g/dL (32.0-36.0); Monocytes % (auto) 10.7 % (0.0-12.0); Neutrophils # (auto) 6.2 10 ^3/uL (1.6-8.6); Neutrophils % (auto) 67.5 % (37.0-80.0); Red Cell Distribution Width 13.1 % (11.8-14.3); White Blood Cell 9.2 10^3/uL (4.4-10.8)
[2020-12-11 05:30] LABS: BUN/Creatinine Ratio 13.7; Calcium 9.9 mg/dL (8.5-10.1); Magnesium 2.3 mg/dL (1.6-2.6); Potassium 4.7 mmol/L (3.5-5.1)
[2020-12-11] MEDS: metroNIDAZOLE 500MG/100ML 100 ML IV SCH ×3 (07:06→21:28)
[2020-12-11] MEDS: D5W/SOD CHL 0.45%/KCL 40MEQ 1,000 ML IV SCH ×3 (07:13→20:54)
[2020-12-11 07:52] VITALS: BP 133/78
[2020-12-11 09:00] VITALS: BP 133/78
[2020-12-11] MEDS: PANTOPRAZOLE 40 MG/10 ML VIAL INJ IV SCH ×2 (10:29→21:28)
[2020-12-11] MEDS: ENOXAPARIN SOD 40 MG/0.4 ML SYRINGE SC SCH (10:29)
[2020-12-11] MEDS: SODIUM CHLOR 0.9% PF (SALINE LOCK) 10ML VIAL/SYR IV SCH ×2 (10:30→21:29)
[2020-12-11] MEDS ORDERED: TPN PER PHARMACY 0 ML IV SCH (11:30)
[2020-12-11 11:55] LABS: Albumin 2.7 g/dL (3.4-5.0)
[2020-12-11 11:58] LABS: Bilirubin, Direct 0.2 mg/dL (0-0.2); Bilirubin, Total 0.7 mg/dL (0.2-1.0); Phosphorus 2.8 mg/dL (2.5-4.90); Pre Albumin 11.4 mg/dL (20.0-40.0); Total Protein 6.6 g/dL (6.4-8.2)
[2020-12-11 13:00] VITALS: BP 131/74
[2020-12-11 17:00] VITALS: BP 128/89
[2020-12-11] MEDS: ACCU-CHEK COMFORT CURVE STRIP VI SCH ×2 (17:11→23:39)
[2020-12-11] MEDS: InsuLIN REG 1unit/0.01ml Soln (100units/ml) SC SCH ×2 (17:12→23:39)
[2020-12-11] MEDS ORDERED: DEXTROSE (50%) 50ML SYRG IV SCH (18:00)
[2020-12-11] MEDS: TPN PER PHARMACY IV NR ×4 (19:46)
[2020-12-11 22:00] VITALS: BP 117/67
[2020-12-12] MEDS: HYDROmorphone HCL 2 MG/ML VL IV PRN ×5 (03:17→21:24)
[2020-12-12 05:00] VITALS: BP 113/66
[2020-12-12] MEDS: metroNIDAZOLE 500MG/100ML 100 ML IV SCH ×3 (05:11→21:24)
[2020-12-12] MEDS: ceFAZolin 2 GM in D5W 5% 100 ML IV SCH ×3 (05:11→21:24)
[2020-12-12] MEDS: InsuLIN REG 1unit/0.01ml Soln (100units/ml) SC SCH ×3 (05:35→17:44)
[2020-12-12] MEDS: ACCU-CHEK COMFORT CURVE STRIP VI SCH ×3 (05:35→17:34)
[2020-12-12 05:56] LABS: Potassium 4.3 mmol/L (3.5-5.1)
[2020-12-12 06:04] LABS: Albumin 2.6 g/dL (3.4-5.0); Bilirubin, Total 0.5 mg/dL (0.2-1.0); Calcium 9.7 mg/dL (8.5-10.1); Magnesium 2.3 mg/dL (1.6-2.6); Phosphorus 2.2 mg/dL (2.5-4.90); Total Protein 6.3 g/dL (6.4-8.2)
[2020-12-12 08:00] VITALS: BP 122/75
[2020-12-12 08:12] VITALS: BP 143/77
[2020-12-12] MEDS: D5W/SOD CHL 0.45%/KCL 40MEQ 1,000 ML IV SCH ×2 (08:30→14:51)
[2020-12-12] MEDS ORDERED: SODIUM PHOSP 20MEQ(15MMOL) IN NS 100 ML IV ONE (08:30)
[2020-12-12] MEDS: ENOXAPARIN SOD 40 MG/0.4 ML SYRINGE SC SCH (10:10)
[2020-12-12] MEDS: PANTOPRAZOLE 40 MG/10 ML VIAL INJ IV SCH ×2 (10:10→21:25)
[2020-12-12] MEDS: SODIUM CHLOR 0.9% PF (SALINE LOCK) 10ML VIAL/SYR IV SCH ×2 (10:11→22:00)
[2020-12-12 17:19] VITALS: BP 121/77
[2020-12-12] MEDS: TPN PER PHARMACY IV NR ×4 (19:43)
[2020-12-12] MEDS ORDERED: TPN PER PHARMACY IV NR ×7 (20:00)
[2020-12-12 22:00] VITALS: BP 116/75
[2020-12-13] MEDS: HYDROmorphone HCL 2 MG/ML VL IV PRN ×5 (03:48→23:24)
[2020-12-13] MEDS: ceFAZolin 2 GM in D5W 5% 100 ML IV SCH ×3 (05:37→22:58)
[2020-12-13] MEDS: ACCU-CHEK COMFORT CURVE STRIP VI SCH ×3 (05:38→12:00)
[2020-12-13] MEDS: metroNIDAZOLE 500MG/100ML 100 ML IV SCH ×3 (05:38→21:56)
[2020-12-13] MEDS: InsuLIN REG 1unit/0.01ml Soln (100units/ml) SC SCH ×3 (05:38→12:00)
[2020-12-13 06:00] VITALS: BP 129/83
[2020-12-13 06:05] LABS: Potassium 4.2 mmol/L (3.5-5.1)
[2020-12-13 06:21] LABS: Albumin 2.7 g/dL (3.4-5.0); BUN/Creatinine Ratio 12.2; Bilirubin, Total 0.4 mg/dL (0.2-1.0); Magnesium 2.3 mg/dL (1.6-2.6); Phosphorus 2.6 mg/dL (2.5-4.90); Total Protein 6.4 g/dL (6.4-8.2)
[2020-12-13 09:00] VITALS: BP 125/84
[2020-12-13] MEDS: PANTOPRAZOLE 40 MG/10 ML VIAL INJ IV SCH ×2 (10:03→21:56)
[2020-12-13] MEDS: ENOXAPARIN SOD 40 MG/0.4 ML SYRINGE SC SCH (10:03)
[2020-12-13] MEDS: SODIUM CHLOR 0.9% PF (SALINE LOCK) 10ML VIAL/SYR IV SCH ×2 (10:08→21:56)
[2020-12-13] MEDS: D5W/SOD CHL 0.45%/KCL 40MEQ 1,000 ML IV SCH (10:22)
[2020-12-13 13:00] VITALS: BP 123/70
[2020-12-13] MEDS ORDERED: TPN PER PHARMACY IV NR ×7 (20:00)
[2020-12-13 22:00] VITALS: BP 117/76
[2020-12-14 04:44] VITALS: BP 125/81
[2020-12-14] MEDS: ceFAZolin 2 GM in D5W 5% 100 ML IV SCH (06:15)
[2020-12-14] MEDS: D5W/SOD CHL 0.45%/KCL 40MEQ 1,000 ML IV SCH (06:20)
[2020-12-14] MEDS: metroNIDAZOLE 500MG/100ML 100 ML IV SCH (07:19)
[2020-12-14 09:00] VITALS: BP 117/74
[2020-12-14] MEDS: PANTOPRAZOLE 40 MG/10 ML VIAL INJ IV SCH (09:19)
[2020-12-14] MEDS: SODIUM CHLOR 0.9% PF (SALINE LOCK) 10ML VIAL/SYR IV SCH (09:20)
[2020-12-14] MEDS: ENOXAPARIN SOD 40 MG/0.4 ML SYRINGE SC SCH (09:20)
[2020-12-14] MEDS: HYDROmorphone HCL 2 MG/ML VL IV PRN (10:15)
[2020-12-14 12:58] VITALS: BP 117/74
[2020-12-14 13:00] VITALS: BP 148/106
== END 2020-12-14 14:15 | disposition home or self-care (01) | DRG 223 ==
LOC: SUR 07:34 → WEST WING 15:18
PROVIDERS: ADMIT Nurse Practitioner Acute Care; ATTEND Internal Medicine
PROC: 0DTJ0ZZ Resection of Appendix, Open Approach (ICD-10-PCS; 2020-12-07)
PROC: 0D9670Z Drainage of Stomach with Drainage Device, Via Natural or Artificial Opening (ICD-10-PCS; 2020-12-07)
PROC: 0DSN0ZZ Reposition Sigmoid Colon, Open Approach (ICD-10-PCS; 2020-12-07)
PROC: 0DSM0ZZ Reposition Descending Colon, Open Approach (ICD-10-PCS; principal; 2020-12-07 11:14)
PROC: 02HV33Z Insertion of Infusion Device into Superior Vena Cava, Percutaneous Approach (ICD-10-PCS; 2020-12-10)
DX: Z43.3 Encounter for attention to colostomy (principal); E87.1 Hypo-osmolality and hyponatremia; K43.5 Parastomal hernia without obstruction or gangrene; E88.09 Other disorders of plasma-protein metabolism, not elsewhere classified; K57.90 Diverticulosis of intestine, part unspecified, without perforation or abscess without bleeding; E66.01 Morbid (severe) obesity due to excess calories; R00.0 Tachycardia, unspecified; Z20.822 Contact with and (suspected) exposure to COVID-19; D72.829 Elevated white blood cell count, unspecified; R07.9 Chest pain, unspecified; Z68.41 Body mass index [BMI] 40.0-44.9, adult; Z90.49 Acquired absence of other specified parts of digestive tract; K38.8 Other specified diseases of appendix
CPT/HCPCS: 36415; 36569; 71045; 71275; 80048; 80053; 80076; 81001; 82040; 82962; 83735; 83880; 84100; 84478; 84484; 85025; 85610; 85730; 86850; 86900; 86901; 93005; C9113; G0378; J0690; J1100; J1815; J2250; J2405; J2704; J3490; J7060

== ENCOUNTER 2021-08-30 09:13 | Emergency (ER) | payer MEDICAID, OTHER ==
[~2021-08-30] VITALS: Ht 172.7 cm; Wt 123.4 kg
[2021-08-30 09:35] VITALS: BP 153/65
[2021-08-30] MEDS ORDERED: KETOROLAC TROMETH 60MG/2ML VIAL IM ONE (10:15)
[2021-08-30] MEDS ORDERED: IBUP800T27 PO (11:33)
[2021-08-30] MEDS ORDERED: METH750T22 PO (11:33)
== END 2021-08-30 11:38 | disposition home or self-care (01) ==
LOC: ER 09:13
DX: K42.9 Umbilical hernia without obstruction or gangrene (principal); K57.90 Diverticulosis of intestine, part unspecified, without perforation or abscess without bleeding
CPT/HCPCS: 74176; 96372; 99284; J1885

== ENCOUNTER 2021-10-30 12:24 | Emergency (ER) | payer BC, MEDICAID ==
[~2021-10-30] VITALS: Ht 172.7 cm; Wt 123.5 kg
[~2021-10-30 12:24] MED LIST: IBUP800T27 PO; METH750T22 PO
[2021-10-30 19:33] LABS: Basophils # (auto) 0.1 10 ^3/uL (0-0.2); Basophils % (auto) 0.9 % (0.0-2.0); Eosinophils # (auto) 0 10 ^3/uL (0-0.8); Eosinophils % (auto) 0.5 % (0.0-7.0); Hematocrit 45.3 % (41.0-53.0); Hemoglobin 14.8 g/dL (13.5-17.5); Lymphocytes # (auto) 2.5 10 ^3/uL (0.4-5.4); Lymphocytes % (auto) 25.4 % (10.0-50.0); Mean Corpuscular Hemoglobin 28.2 pg (28.0-32.0); Mean Corpuscular Hgb Conc. 32.7 g/dL (32.0-36.0); Mean Corpuscular Volume 86.3 fL (80.0-100.0); Monocytes # (auto) 0.6 10 ^3/uL (0-1.3); Monocytes % (auto) 5.7 % (0.0-12.0); Neutrophils # (auto) 6.6 10 ^3/uL (1.6-8.6); Neutrophils % (auto) 67.5 % (37.0-80.0); Red Blood Cells 5.25 10^6/uL (4.5-5.90); Red Cell Distribution Width 13.7 % (11.8-14.3); White Blood Cell 9.7 10^3/uL (4.4-10.8)
[2021-10-30 19:54] LABS: Calcium 10.5 mg/dL (8.5-10.1); Potassium 4.4 mmol/L (3.5-5.1)
[2021-10-30 19:57] LABS: BUN/Creatinine Ratio 15.6; Bilirubin, Total 0.5 mg/dL (0.2-1.0)
[2021-10-30] MEDS ORDERED: LACT10SO70 PO (20:40)
[2021-10-30] MEDS ORDERED: METR500T14 PO (20:40)
[2021-10-30] MEDS ORDERED: CEPH-510 PO (20:41)
[2021-10-30 20:52] VITALS: BP 147/94
== END 2021-10-30 20:52 | disposition home or self-care (01) ==
LOC: ER 12:24
DX: K59.00 Constipation, unspecified (principal); K44.9 Diaphragmatic hernia without obstruction or gangrene
CPT/HCPCS: 36415; 74018; 74176; 80053; 83690; 85025

== ENCOUNTER 2022-06-09 15:29 | Emergency (ER) | payer MEDICAID ==
[~2022-06-09] VITALS: Ht 172.7 cm; Wt 122.2 kg
[2022-06-09 16:22] VITALS: BP 123/90
[2022-06-09 16:34] LABS: Urine Bacteria NONE SEEN /hpf (None Seen); Urine Blood 1+ /uL (Negative); Urine Mucus FEW (None Seen); Urine Specific Gravity 1.026 (1.001-1.035); Urine WBC 21 /hpf (0 - 3)
[2022-06-09] MEDS ORDERED: TAM04C PO (17:10)
[2022-06-09] MEDS ORDERED: CIPR-173 PO (17:10)
[2022-06-09] MEDS ORDERED: CIP03OS RIGHTEYE (17:10)
== END 2022-06-09 17:22 | disposition home or self-care (01) ==
LOC: ER 15:29
DX: N39.0 Urinary tract infection, site not specified (principal); H10.31 Unspecified acute conjunctivitis, right eye; Z79.2 Long term (current) use of antibiotics; Z79.899 Other long term (current) drug therapy
CPT/HCPCS: 81001

== ENCOUNTER → 2023-03-29 | Outpatient (CLI) | payer MEDICAID ==
[~2023-03-29] MED LIST changes: +CIP03OS RIGHTEYE; +CIPR-173 PO; -IBUP800T27 PO; -METH750T22 PO; +TAMS-35 PO
[2023-03-29 10:04] LABS: Basophils # (auto) 0 10 ^3/uL (0-0.2); Basophils % (auto) 0.2 % (0.0-2.0); Eosinophils # (auto) 0.1 10 ^3/uL (0-0.8); Eosinophils % (auto) 0.9 % (0.0-7.0); Hematocrit 44.6 % (41.0-53.0); Lymphocytes # (auto) 2.3 10 ^3/uL (0.4-5.4); Mean Corpuscular Hemoglobin 29.1 pg (28.0-32.0); Mean Corpuscular Hgb Conc. 33.6 g/dL (32.0-36.0); Mean Corpuscular Volume 86.7 fL (80.0-100.0); Monocytes # (auto) 0.6 10 ^3/uL (0-1.3); Monocytes % (auto) 8.8 % (0.0-12.0); Neutrophils # (auto) 3.8 10 ^3/uL (1.6-8.6); Neutrophils % (auto) 56.1 % (37.0-80.0); Red Blood Cells 5.15 10^6/uL (4.5-5.90); Red Cell Distribution Width 13.5 % (11.8-14.3); White Blood Cell 6.7 10^3/uL (4.4-10.8)
[2023-03-29 11:03] LABS: Triglycerides 187 mg/dL (< 150)
[2023-03-29 11:04] LABS: LDL Cholesterol 84 mg/dL (< 100)
[2023-03-29 11:05] LABS: Cholesterol 149 mg/dL (< 200); HDL Cholesterol 30 mg/dL (40-59)
[2023-03-29 11:07] LABS: T3 Total 1.41 ng/mL (0.60-1.81)
[2023-03-29 11:08] LABS: Free T4 (Free Thyroxine) 1.13 ng/dL (0.89-1.76)
== END | disposition home or self-care (01) ==
LOC: LAB 09:49
PROVIDERS: ATTEND Nurse Practitioner Gerontology
DX: Z13.220 Encounter for screening for lipoid disorders (principal); Z13.1 Encounter for screening for diabetes mellitus; E66.9 Obesity, unspecified
CPT/HCPCS: 36415; 80061; 83036; 84439; 84443; 84480; 85025